=== PATIENT | male | born 1965 | race Asian ===

== ENCOUNTER 2017-01-30 18:15 | Emergency (ER) | payer MEDICAID ==
[~2017-01-30] VITALS: Ht 175.3 cm; Wt 78.0 kg
[2017-01-30 19:02] LABS: BASOPHILS % 0.5 % (0.0-2.0); EOSINOPHILS % 2.4 % (0.0-5.0); HEMOGLOBIN. 10.4 g/dL (14.0-18.0); LYMPHOCYTES % 15.7 % (20.0-50.0); MEAN CORPUSCULAR HEMOGLOBIN 32.7 pg (28.0-32.0); MEAN CORPUSCULAR VOLUME 94.6 fL (80.0-94.0); MEAN PLATELET VOLUME 7.2 fl (7.4-10.4); MONOCYTES % 7.4 % (2.0-8.0); PLATELET 224 x1000/uL (130-400); RED BLOOD CELL COUNT 3.18 mill/uL (4.7-6.1); RED CELL DISTRIBUTION WIDTH 13.7 % (11.6-14.6)
[2017-01-30 19:04] LABS: CHLORIDE 100 mEq/L (98-107)
[2017-01-30 19:05] LABS: PROTHROMBIN TIME 10.8 sec (9.4-11.6)
[2017-01-30 19:14] LABS: CARBON DIOXIDE 21 mEq/L (21-32)
[2017-01-30 19:30] VITALS: BP 152/87
== END 2017-01-30 21:00 | disposition home or self-care (01) ==
LOC: ER 18:15
DX: L76.22 Postprocedural hemorrhage of skin and subcutaneous tissue following other procedure (principal); R58 Hemorrhage, not elsewhere classified; N18.6 End stage renal disease; E11.22 Type 2 diabetes mellitus with diabetic chronic kidney disease; R20.0 Anesthesia of skin; M79.602 Pain in left arm; Z99.2 Dependence on renal dialysis; Z88.8 Allergy status to other drugs, medicaments and biological substances
CPT/HCPCS: 36415; 80053; 85025; 85610; 93005; 99291; Z7610